=== PATIENT | male | born 2005 | race Caucasian/White ===

== ENCOUNTER 2025-03-28 21:11 | Emergency (ER) | payer MEDICAID ==
[~2025-03-28] VITALS: Ht 182.9 cm; Wt 78.0 kg
[2025-03-28] MEDS: IBUPROFEN 600 MG TABLET PO ONE (21:47)
[2025-03-28] MEDS: ACETAMINOPHEN 500 MG TABLET PO ONE (21:47)
[2025-03-28 21:59] LABS: COVID AG,FIA SOURCE NASAL SWAB
[2025-03-28 22:20] LABS: SARS-COV2 (COVID) ANTIGEN,FIA Negative (Negative)
[2025-03-28 22:23] LABS: INFLUENZA TYPE A NEGATIVE FOR TYPE A (NEGATIVE); INFLUENZA TYPE B NEGATIVE FOR TYPE B (NEGATIVE); RAPID GROUP A STREP PRELIM. NEGATIVE (NEGATIVE)
[2025-03-28] MEDS ORDERED: AZIT250T9 PO (22:54)
[2025-03-28 23:00] VITALS: BP 115/60; PULSE 98; RESP 18; TEMP 100.9; O2SAT 99
[2025-03-28] MEDS: LIDOCAINE/PF 1% 2 ML VIAL IM ONE (23:06)
[2025-03-28] MEDS: CefTRIAXone SODIUM 1 GM/VIAL IM ONE (23:06)
== END 2025-03-28 23:14 | disposition home or self-care (01) ==
LOC: EMS 21:11
DX: J03.90 Acute tonsillitis, unspecified (principal); H66.91 Otitis media, unspecified, right ear; Z79.899 Other long term (current) drug therapy; Z20.822 Contact with and (suspected) exposure to COVID-19
CPT/HCPCS: 99283; 87426; 87081; 87430; 87804; 96372; J0696; J3490